=== PATIENT | female | born 1975 | race Caucasian/White ===

== ENCOUNTER 2017-10-18 06:13 | Day surgery (SDC) | payer OTHER ==
[2017-10-18] MEDS ORDERED: hydrALAzine 20 MG INJ IV (06:30)
[2017-10-18] MEDS ORDERED: FENTAnyl 50 MCG/ML VIAL IV (06:30)
[2017-10-18] MEDS ORDERED: EPHEDrine SULFATE 50 MG/5 ML SYG IV (06:30)
[2017-10-18] MEDS ORDERED: ATROPINE 1 MG/10 ML SYRINGE IV (06:30)
[2017-10-18] MEDS ORDERED: LABETALOL HCL 20MG INJ IV (06:30)
[2017-10-18] MEDS ORDERED: ONDANSETRON 4 MG INJ IV (06:30)
[2017-10-18] MEDS ORDERED: HYDROmorphONE (0.2 MG/ML) 10ML SYG IV ×2 (06:30)
[2017-10-18] MEDS ORDERED: DIPHENHYDRAMINE 50 MG INJ IV (06:30)
[2017-10-18] MEDS ORDERED: morphine (1 MG/ML) 10ML SYRINGE IV ×3 (06:30)
[2017-10-18] MEDS ORDERED: MIDAZOLAM 1 MG/ML 2 ML INJ IV (06:30)
[2017-10-18] MEDS ORDERED: MEPERIDINE 25 MG INJ IV (06:30)
[2017-10-18] MEDS ORDERED: OXYCODONE/ACETAMINOPHEN (5/325) TAB PO (06:30)
[2017-10-18] MEDS ORDERED: MIDAZOLAM 1 MG/ML 2 ML INJ (06:32)
[2017-10-18] MEDS ORDERED: ROCURONIUM 50 MG INJ (06:32)
[2017-10-18] MEDS ORDERED: NEOSTIGMINE 3 MG/3 ML SYRINGE (06:32)
[2017-10-18] MEDS ORDERED: PROPOFOL 20 ML (06:32)
[2017-10-18] MEDS ORDERED: GLYCOPYRROLATE 0.4 MG INJ (06:32)
[2017-10-18] MEDS ORDERED: FENTAnyl 50 MCG/ML VIAL (06:33)
[2017-10-18] MEDS ORDERED: ONDANSETRON 4 MG INJ (06:38)
[2017-10-18] MEDS ORDERED: DEXAMETHASONE 4 MG/ML 1 ML INJ (06:38)
[2017-10-18] MEDS ORDERED: LIDOCAINE 100 MG SYRINGE (07:00)
[2017-10-18] MEDS ORDERED: ROPIVACAINE 0.5 % 30 ML VIAL (07:01)
[2017-10-18] MEDS ORDERED: LIDOCAINE 2%/EPI 30 ML INJ (07:02)
[2017-10-18] MEDS: FENTAnyl 50 MCG/ML VIAL IV (10:01)
[2017-10-18] MEDS: POLYMYXIN/BACITRACIN 1L IRRIG (10:04)
[2017-10-18] MEDS: HYDROmorphONE (0.2 MG/ML) 10ML SYG IV (11:01)
[2017-10-18] MEDS: OXYCODONE/ACETAMINOPHEN (5/325) TAB PO (11:36)
== END 2017-10-18 12:50 | disposition home or self-care (01) ==
LOC: SDS 06:13
DX: S82.62XA Displaced fracture of lateral malleolus of left fibula, initial encounter for closed fracture (principal); X58.XXXA Exposure to other specified factors, initial encounter
CPT/HCPCS: 27792; 73610; 73630-LT